=== PATIENT | male | born 1995 | race Caucasian/White ===

== ENCOUNTER 2017-05-16 18:36 | Inpatient (IN) | payer SELFPAY ==
[2017-05-16] MEDS ORDERED: MAG HYDROX/AL HYDROX/SIMETH 30 ML UDCUP PO ONE (19:10)
[2017-05-16] MEDS ORDERED: HYOSCYAMINE SULFATE 0.125 MG TAB PO ONE (19:10)
[2017-05-16] MEDS ORDERED: FAMOTIDINE 20 MG TAB PO ONE (19:10)
[2017-05-16] MEDS ORDERED: NS 1,000 ML IV ONE ×2 (19:10→21:37)
[2017-05-16] MEDS ORDERED: LIDOCAINE 2% VISCOUS 15 ML UDCUP PO ONE (19:10)
--- NOTE | 2017-05-16 19:10 | EDPHY ---
H & P Stated Complaint: epigastric pain Time Seen by Provider: 05/16/17 19:10 HPI/ROS: HPI: This is a 21-year-old male who presents with Chief Complaint: epigastric pain Location: Epigastric Quality: Burning pain Duration: 1 day Signs and Symptoms: no fever, + nausea, + vomiting, no hematemesis, no blood in stool, no abdominal bloating, no diarrhea, no back pain, no urinary symptoms, no testicular/groin pain, no indigestion, no chest pain, no shortness of breath Timing: Acute, constant Severity: Moderate Context: Patient is the regular alcohol user presents with 1 day history of burning, nonradiating, epigastric pain accompanied by nausea with 1 episode of vomiting prior to arrival. Patient denies any hematemesis/blood in stool. Does have a history hemorrhoid. Patient reports that he has never gone through alcohol withdrawal or had seizures. Patient reports that his appetite has been decreased. He admits to being under considerable stress. Denies NSAID use. Six months ago used to drink 2 bottles of whiskey a day but now drinks 1. Last alcohol use was 2 days ago. Modifying Factors: None Comment: ROS: see HPI Constitutional: No fever, no chills, no weight loss Eyes: No blurred vision Respiratory: No shortness of breath, no cough Cardiovascular: No chest pain, no palpitations Gastrointestinal: + nausea, + vomiting, no diarrhea, no hematemesis, no blood in stool Genitourinary: No dysuria, no blood in urine Extremities: No myalgias, no edema Neurologic: No weakness, no numbness Skin: No rashes, no petechiae Hematologic: No bruising, no bleeding MEDICAL/SURGICAL/SOCIAL HISTORY: Medical history: Generally healthy. Does not take any regular medications. Surgical history: Denies Social history: Employed. CONSTITUTIONAL: Extremely well-appearing young adult white male, overweight, awake and alert, no obvious distress HEENT: Atraumatic and normocephalic, PERRL, EOMI. Tympanic membranes clear. Oropharynx clear, no exudate and moist pink mucosa. Airway patent. No lymphadenopathy. No meningismus. Cardiovascular: Normal S1/S2, regular rate, regular rhythm, without murmur rub or gallop. PULMONARY/CHEST: Symmetrical and nontender. Clear to auscultation bilaterally. Good air movement. No accessory muscle usage. ABDOMEN: Soft, nondistended, moderate epigastric tenderness, no rebound, no guarding, no peritoneal signs, no masses or organomegaly. No CVAT. EXTREMITIES: 2/2 pulses, strength 5/5, no deformities, no clubbing, no cyanosis or edema. NEUROLOGICAL: no focal neuro deficits. GCS 15. SKIN: Warm and dry, no erythema. no rash. Good capillary refill. Source: Patient Exam Limitations: No limitations - Personal History Current Tetanus/Diphtheria Vaccine: Yes Current Tetanus Diphtheria and Acellular Pertussis (TDAP): Yes - Medical/Surgical History Hx Asthma: No Hx Chronic Respiratory Disease: No Hx Diabetes: No Hx Cardiac Disease: No Hx Renal Disease: No Hx Cirrhosis: No Hx Alcoholism: Yes Hx HIV/AIDS: No Hx Splenectomy or Spleen Trauma: No Other PMH: denies - Social History Smoking Status: Never smoked Constitutional: Initial Vital Signs Temperature (C) 36.6 C 05/16/17 18:44 Heart Rate 75 05/16/17 18:44 Respiratory Rate 16 05/16/17 18:44 Blood Pressure 167/105 H 05/16/17 18:44 O2 Sat (%) 98 05/16/17 18:44 O2 Delivery Mode Room Air Allergies/Adverse Reactions: No Known Allergies Allergy (Unverified 05/16/17 18:44) Home Medications: Medication Instructions Recorded EX-LAX 05/16/17 Pepto-Bismol 05/16/17 Medical Decision Making - Diagnostics EKG Interpretation: 12 lead EKG: Indication: Epigastric pain Rhythm: Normal sinus rhythm, rate of 75 beats per minute [place]: Normal Intervals: Normal QRS: Normal ST segments: Normal INTERPRETATION: No acute ischemic changes The 12 lead EKG was interpreted by myself and with attending. Imaging Results: Imaging Impressions Abdomen X-Ray 05/16/17 19:11 Impression: Nonspecific bowel gas pattern with multiple small air-fluid levels seen involving portions of the stomach, small, and large bowel. ED Course/Re-evaluation: EKG, labs, KUB, oral medications ordered Given 2 L normal saline, IV morphine 4 mg, GI cocktail and Pepcid with moderate relief of symptoms EKG my read shows no signs of acute ischemia or arrhythmia Labs reviewed and showed leukocytosis of 11 K, lipase 1402, total bili 1.8 KUB shows no perforation, free air; nonobstructive bowel gas pattern my read. CT abdomen and pelvis scan ordered to evaluate for pancreatitis. ED decision to consult for admission: CT scan results pending upon hospitalist consult. Will need right upper quadrant ultrasound to evaluate gallbladder as well. This patient was seen under the supervision of my secondary supervising physician. I evaluated care for this patient independently. Discussed this patient with Dr. Bee who did not see the patient. Differential Diagnosis: Abdominal pain including but not limited to appendicitis, cholecystitis, gastritis and urinary tract infection. - Data Points Laboratory Results: Laboratory Results 05/16/17 19:25 05/16/17 19:25 05/16/17 05/16/17 19:25 19:25 WBC 11.15 10^3/uL H 10^3/uL (3.80-9.50) RBC 6.11 10^6/uL 10^6/uL (4.40-6.38) Hgb 18.6 g/dL H g/dL (13.7-17.5) Hct 52.3 % H % (40.0-51.0) MCV 85.6 fL fL (81.5-99.8) MCH 30.4 pg pg (27.9-34.1) MCHC 35.6 g/dL g/dL (32.4-36.7) RDW 12.2 % % (11.5-15.2) Plt Count 180 10^3/uL 10^3/uL (150-400) MPV 11.1 fL fL (8.7-11.7) Neut % (Auto) 83.6 % H % (39.3-74.2) Lymph % (Auto) 9.5 % L % (15.0-45.0) [place] % (Auto) 5.3 % % (4.5-13.0) Eos % (Auto) 0.8 % % (0.6-7.6) Baso % (Auto) 0.4 % % (0.3-1.7) Nucleat RBC Rel Count 0.0 % % (0.0-0.2) Absolute Neuts (auto) 9.33 10^3/uL H 10^3/uL (1.70-6.50) Absolute Lymphs (auto) 1.06 10^3/uL 10^3/uL (1.00-3.00) Absolute Monos (auto) 0.59 10^3/uL 10^3/uL (0.30-0.80) Absolute Eos (auto) 0.09 10^3/uL 10^3/uL (0.03-0.40) Absolute Basos (auto) 0.04 10^3/uL 10^3/uL (0.02-0.10) Absolute Nucleated RBC 0.00 10^3/uL 10^3/uL (0-0.01) Immature Gran % 0.4 % % (0.0-1.1) Immature Gran # 0.04 10^3/uL 10^3/uL (0.00-0.10) Sodium 142 mEq/L mEq/L (135-145) Potassium 4.0 mEq/L mEq/L (3.5-5.2) Chloride 101 mEq/L mEq/L (97-110) Carbon Dioxide 30 mEq/l mEq/l (22-31) Anion Gap 11 mEq/L mEq/L (8-16) BUN 14 mg/dL mg/dL (7-23) Creatinine 1.0 mg/dL mg/dL (0.7-1.3) Estimated GFR > 60 Glucose 91 mg/dL mg/dL (70-100) Calcium 10.5 mg/dL H mg/dL (8.5-10.4) Total Bilirubin 1.8 mg/dL H mg/dL (0.1-1.4) Conjugated Bilirubin 0.3 mg/dL mg/dL (0.0-0.5) Unconjugated Bilirubin 1.5 mg/dL H mg/dL (0.0-1.1) AST 31 IU/L IU/L (17-59) ALT 76 IU/L H IU/L (21-72) Alkaline Phosphatase 72 IU/L IU/L (38-126) Total Protein 7.4 g/dL g/dL (6.3-8.2) Albumin 4.5 g/dL g/dL (3.5-5.0) Lipase 1402 IU/L H IU/L (23-300) Medications Given: Discontinued Medications Al Hydroxide/Mg Hydroxide (Maalox Susp) 30 ml PO ONCE ONE Stop: 05/16/17 19:11 Last Admin: 05/16/17 19:22 Dose: 30 ml Famotidine (Pepcid) 20 mg PO EDNOW ONE Stop: 05/16/17 19:11 Last Admin: 05/16/17 19:23 Dose: 20 mg Hyoscyamine Sulfate (Levsin, Hyomax-Sl) 0.25 mg PO ONCE ONE Stop: 05/16/17 19:11 Last Admin: 05/16/17 19:22 Dose: 0.25 mg Sodium Chloride (Ns) 1,000 mls @ 0 mls/hr IV EDNOW ONE; Wide Open PRN Reason: Protocol Stop: 05/16/17 19:11 Last Admin: 05/16/17 19:23 Dose: 1,000 mls Lidocaine (Lidocaine 2% Viscous) 15 ml PO ONCE ONE Stop: 05/16/17 19:11 Last Admin: 05/16/17 19:22 Dose: 15 ml Morphine Sulfate (Morphine) 4 mg IVP EDNOW ONE Stop: 05/16/17 21:25 Last Admin: 05/16/17 21:36 Dose: 4 mg Departure - Departure Disposition: [facility] Acute Clinical Impression: Alcoholic pancreatitis Qualifiers: Chronicity: acute Acute pancreatitis complication: unspecified Qualified Code(s ): K85.20 - Alcohol induced acute pancreatitis without necrosis or infection Condition: Fair Instructions: Diet for Stomach Ulcers and Gastritis (ED)
[2017-05-16 19:35] LABS: PLATELET COUNT 180 10^3/uL (150-400)
--- NOTE | 2017-05-16 19:42 | CPEKG ---
Heart Rate: 75 RR Interval: 800 P-R Interval: 156 QRSD Interval: 88 QT Interval: 368 QTC Interval: 411 P Mcbain: -2 QRS Mcbain: 9 T Wave Mcbain: 9 EKG Severity - NORMAL ECG - EKG Impression: SINUS RHYTHM Electronically Signed By: Nicolas Bee 16-May-2017 22:02:59
[2017-05-16] MEDS ORDERED: IOPAMIDOL (ISOVUE-300) 100 ML BTL ONE (20:14)
--- NOTE | 2017-05-16 21:47 | PDDCSUM ---
Discharge Summary Discharge Summary: Chief complaint: [] History of present illness: [] Past medical history: [] Past surgical history: [] Medications: [] Allergies: [] Social history: [] Family history: [] Review of systems: 10 point review of systems was conducted and is negative except per HPI Physical exam: Vitals: Reviewed Labs: [] Other Data: [] Impression and plan: []
--- NOTE | 2017-05-16 21:48 | PDGENHP ---
History and Physical History and Physical: Chief complaint: abdominal pain. History of present illness: Pt is a 21yo [place] M who p/w abdominal pain x 2 days. He drank "1 Michael and 2 tall glasses of whiskey" 2 days ago. Pain began the next morning and is characterized as sharp. Severity of pain 10/10 at max and 7/10 when it wanes. Pain does not radiate. He had some nausea and one episode of clear vomiting. He denies fevers/chills. He denies changes in bowel habits. He was found to have acute pancreatitis with an elevated lipase in the ED. He has never had pancreatitis in the past. He has loss of appetite a/w this. Past medical history: Hyperextensible joints. Hemorrhoid. Past surgical history: wisdom teeth removal. Medications: None. Allergies: Seasonal. Social history: Does not normally drink, quit 6 months ago. Drank heavily prior to 6 months ago. Has a girlfriend who lives in [place]. 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 He normally resides in [facility]. Family history: MGF- cardiac problems, DM, kidney problems, stroke. Review of systems: 10 point review of systems was conducted and is negative except per HPI Physical exam: Vitals: Reviewed Gen: pt is an obese young male, alert and oriented x3. HEENT: EOMI, MM dry. CV: RRR no MRG. Resp: CTAB no RRW. Abd: SNE. +BS. +tender midepigastrium. No rebound tenderness or muscle rigidity. Labs: WBC 11, Hgb 18. Lipase 1402. LFTs slightly abnormal. Impression and plan: Acute pancreatitis 2/2 alcohol binging episode Abnormal LFTs, 2/2 above. -IVF -prn antiemetics, analgesics. -NPO Obesity Hemorrhoid -hydrocortisone rectal cream daily VTE ppx - ambulatory.
[2017-05-16] MEDS ORDERED: PROMETHAZINE HCL 25 MG/ML INJ IVP PRN (22:02)
[2017-05-16] MEDS ORDERED: ONDANSETRON 4 MG/2 ML VIAL IVP PRN (22:02)
[2017-05-16] MEDS ORDERED: ACETAMINOPHEN 650 MG SUPP PR PRN (22:02)
[2017-05-16] MEDS ORDERED: LORazepam 2 MG/ML INJ IVP PRN (22:02)
[2017-05-16] MEDS ORDERED: ACETAMINOPHEN 325 MG TAB PO PRN (22:02)
[2017-05-16] MEDS ORDERED: hydrALAZINE 20 MG/ML VIAL IVP PRN (22:11)
[2017-05-16] MEDS ORDERED: LR 1,000 ML IV SCH (22:30)
[2017-05-16] MEDS: FAMOTIDINE 20 MG/NACL 50 ML IV SCH (22:58)
[2017-05-16] MEDS: HYDROmorphone HCL/NS 0.5 MG/ML SYR IVP PRN (23:12)
[2017-05-16] MEDS: HYDROCORTISONE ACETATE 25 MG SUPP PR SCH (23:13)
[2017-05-17] MEDS: HYDROmorphone HCL/NS 0.5 MG/ML SYR IVP PRN ×2 (04:48→08:53)
[2017-05-17 05:29] LABS: PLATELET COUNT 153 10^3/uL (150-400)
--- NOTE | 2017-05-17 05:38 | PDMN ---
Medical Necessity Medical necessity: Physician response: not changing to inpatient status bc patient was discharged the next day. C/M review: Patient meets INPT criteria under [facility] Pancreatitis: Acute and persistent pancreatitis secondary to alcohol binging episode, abdominal pain, abnormal LFTs- total bilirubin 1.8, ALT 76, Lipase 1402, WBC 11.15 requiring ongoing NPO, IV LR 200 ml/hr infusion, IV Pepcid BID, IV Dilaudid, comorbid obesity, hemorrhoid, history patient drank alcohol heavily prior to 6 months ago, alcohol binge drank 2 days prior to this admission. MD anticipated > 2 MN LOS for ongoing med nec for eval and TX of above.
[2017-05-17 07:40] VITALS: RESP 18
[2017-05-17] MEDS ORDERED: PREPARATION H 51 GM CRTUBE PR PRN (08:33)
[2017-05-17] MEDS: FAMOTIDINE 20 MG/NACL 50 ML IV SCH (08:51)
[2017-05-17] MEDS: HYDROCORTISONE ACETATE 25 MG SUPP PR SCH (08:54)
[2017-05-17 11:29] VITALS: BP 116/73; PULSE 63; TEMP 97.6; O2SAT 97
--- NOTE | 2017-05-17 14:31 | GDS ---
[f rep st] DISCHARGE SUMMARY DISCHARGE DIAGNOSIS: Pancreatitis. PHYSICAL EXAM: GENERAL: The patient is alert. VITAL SIGNS: Afebrile at 36.4, pulse 63, respirator y rate is 18, blood pressure is 116/73, saturating greater than 90% on room air. I have seen and lalit luated the patient on the day of discharge. HOSPITAL COURSE: The patient is a 21-year-old male who presented to the emergency room with complain ts of abdominal pain. He was evaluated and diagnosed with acute pancreatitis secondary to binge alco hol drinking. He also had notable abnormal LFTs. During this hospitalization, he was treated with [facility]. His abdominal pain and pancreatitis have subsided. He is tolerating a regular diet. He will be discharged home to follow up in the outpatient setting with his primary care physician. There are no pending studies. DISCHARGE MEDICATIONS: Please refer to EMR form. The patient has received education regarding alcoh ol cessation and recommendations for further abstinence from alcohol. He is in agreement with this p halley, as well as a low-fat diet. /[id number]/MODL
--- NOTE | 2017-05-17 14:46 | ASMTLACE ---
LACE Length of stay for Answers: Less than 1 day current admission Comorbidities - select Answers: Mild liver or renal all that apply disease # of Emergency department Answers: 1-2 visits in the last 6 months Social determinants Answers: History of substance abuse (ETOH, street drugs, prescription drugs, etc.) Score: 6 Date Signed: 05/17/2017 02:46 PM Electronically Signed By:Jacqueline Dutton RN
--- NOTE | 2017-05-17 14:52 | ASDISCHSUM ---
Discharge Information Plan Status:Home with No Needs Medically Cleared to Leave:05/16/2017 Discharge Date:05/17/2017 02:43 PM CM D/C Disposition:Home, Routine, Self-Care ADT D/C Disposition:Home, Routine, Self-Care Projected Discharge Date:05/17/2017 02:43 PM Transportation at D/C:Family Discharge Delay Reason: Follow-Up Date:05/17/2017 02:43 PM Discharge Slot: Final Diagnosis: Placement Information Patient Contact Information Contact Name:GABRIELLA Relationship:Mother Address:[address] Work Phone: City:[facility] Alternate Phone: [facility] Code:OC Email: Financial Information Financial Class:Commercial Primary Plan Desc:[employer] Primary Plan Number:[id number] Secondary Plan Desc: Secondary Plan Number: Assessment Information LACE LACE Length of stay for Answers: Less than 1 day current admission Comorbidities - select Answers: Mild liver or renal all that apply disease # of Emergency department Answers: 1-2 visits in the last 6 months Social determinants Answers: History of substance abuse (ETOH, street drugs, prescription drugs, etc.) Score: 6 Date Signed: 05/17/2017 02:46 PM Electronically Signed By:Jacqueline Dutton RN Case Management Discharge Plan Note Case Management Discharge Discharge Order Complete? Answers: Yes Patient to Obtain Answers: Independently Medications Transportation Arranged Answers: Family/Friends Discharge Comments Notes: Patient dcd to home independent with good support. Date Signed: 05/17/2017 02:47 PM Electronically Signed By:Jacqueline Dutton RN Intervention Information
== END 2017-05-17 14:43 | disposition home or self-care (01) | DRG 440 ==
LOC: OBSVTOIN 22:02 → F3E 22:48
PROVIDERS: ADMIT Internal Medicine; ATTEND Internal Medicine
DX: K85.20 Alcohol induced acute pancreatitis without necrosis or infection (principal); R94.5 Abnormal results of liver function studies; K64.9 Unspecified hemorrhoids; E66.9 Obesity, unspecified
CPT/HCPCS: 96374; J1170; J2270; Q9967